=== PATIENT | female | born 1980 | race Caucasian/White ===

== ENCOUNTER 2017-03-25 16:22 | Emergency (ER) | payer MEDICAID ==
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
== END 2017-03-25 17:55 | disposition home or self-care (01) ==
LOC: ER 16:22
PROC: 2W23X4Z Dressing of Abdominal Wall using Bandage (ICD-10-PCS; principal; 2017-03-25)
DX: O9A.213 Injury, poisoning and certain other consequences of external causes complicating pregnancy, third trimester (principal); T21.12XA Burn of first degree of abdominal wall, initial encounter; T31.0 Burns involving less than 10% of body surface; Z3A.30 30 weeks gestation of pregnancy; X10.2XXA Contact with fats and cooking oils, initial encounter; Y92.009 Unspecified place in unspecified non-institutional (private) residence as the place of occurrence of the external cause